=== PATIENT | male | born 1980 | race Caucasian/White ===

== ENCOUNTER 2022-09-27 08:36 | Emergency (ER) | payer BC ==
[2022-09-27] MEDS ORDERED: Azithromycin 250 MG TAB ONE (09:04)
[2022-09-27] MEDS ORDERED: Dexamethasone 4 MG TAB ONE (09:04)
== END 2022-09-27 09:33 | disposition home or self-care (01) ==
LOC: MADERS 08:36
DX: J06.9 Acute upper respiratory infection, unspecified (principal); J45.909 Unspecified asthma, uncomplicated; Z79.899 Other long term (current) drug therapy
CPT/HCPCS: 71045; J8540